=== PATIENT | female | born 1965 | race Caucasian/White ===

== ENCOUNTER 2018-11-02 07:25 | Day surgery (SDC) | payer OTHER ==
[2018-11-02] MEDS ORDERED: LIDOCAINE 100 MG SYRINGE (10:29)
[2018-11-02] MEDS ORDERED: PROPOFOL 20 ML (10:29)
== END 2018-11-02 14:50 | disposition home or self-care (01) ==
LOC: GIL 07:25
DX: Z12.11 Encounter for screening for malignant neoplasm of colon (principal); K64.8 Other hemorrhoids
CPT/HCPCS: 45378; 88305